=== PATIENT | female | born 1940 | race Caucasian/White ===

== ENCOUNTER 2019-04-09 18:34 | Emergency (ER) | payer OTHER ==
[~2019-04-09] VITALS: Ht 154.9 cm; Wt 73.5 kg
--- OUTSIDE RECORDS SUMMARY | 2019-04-09 18:36 | XMS REPORT ---
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 Allergies, Adverse Reactions, Alerts This patient has no known allergies or adverse reactions. Medications This patient has no known medications. Results Test Description Test Time Test Comments Text Results Atomic Results Result Comments SCR MAMM BILATERAL ANDREW CAD DIGITAL 2018-11-20 09:59:03 - SCR MAMM BILATERAL ANDREW CAD DIGITALBILATERAL DIGITAL SCREENING MAMMOGRAM 3D/2D WITH CAD: 11/20/2018CLINICAL: Asymptomatic. Current mammographic images were evaluated by either a [employer] M-Vu or an [employer] version 7.2 computer aided detection system. Comparison is made to exams dated 05/07/2017 mammogram, 04/10/2016 mammogram, and 03/24/2015 mammogram - [facility]. There are scattered fibr oglandular tissues in both breasts. No suspicious mass, architectural distortion, malignant type calcification, or lymph node abnormality detected. Breast architecture is stable compared to prior exams.IMPRESSION: NEGATIVEThere is no mammographic evidence of malignancy. Resume annual screening mammography in one year. Woo Diaz M.D. ss/penrad:11/20/2018 09:59:03 Geology Faculty Member: Anitha Ritchie , [facility] sent: BIRADS 1-2 Normal Mammogram BI-RADS: 1 Negative
--- NOTE | 2019-04-09 19:44 | Diagnostic Imaging Report ---
EXAMINATION: Head CT without contrast. HISTORY:Status post fall. COMPARISON:None. TECHNIQUE: Multidetector axial images were obtained from the foramen magnum to the vertex without contrast. The images were reconstructed using brain and bone algorithms. Thin section brain images were reformatted into coronal and sagittal planes. Dose modulation, iterative reconstruction, and/or weight based adjustment of the mA/kV was utilized to reduce the radiation dose to as low as reasonably achievable. Intravenous contrast: None IMAGE QUALITY: Acceptable. FINDINGS: Skull/scalp: No lytic or blastic. lesions. No surgical changes. Parenchyma: Nonspecific bilateral frontoparietal patchy and confluent white matter hypodensity are likely related to small vessel ischemic changes. No acute hemorrhage, mass or acute major vascular territorial infarct. Arteries: No density suggestive of thrombosis. Atherosclerotic calcification in bilateral carotid siphon and V4 segment of right vertebral artery. Dural sinuses: No abnormal density suggestive of thrombosis. Ventricles: No hydrocephalus or displacement. Extra-axial spaces: No abnormal density. Brain volume: Normal for age. Craniocervical junction: No mass, Chiari malformation, or basilar invagination. Sella: No mass. Paranasal/mastoid sinuses: Moderate mucosal thickening without fluid level in left sphenoid sinus. Mild mucosal thickening with sclerotic and thickened sinus wall and left maxillary sinus represents chronic inflammation. Incidental finding: Hyperdense appearance of right globe probably represents prosthesis. IMPRESSION: 1. No acute posttraumatic intracranial abnormality. 2. Moderate supratentorial white matter microvascular ischemic changes. Signed by: Dr. Shelby Small M.D. on 04/09/2019 7:41 PM
--- NOTE | 2019-04-09 19:51 | Diagnostic Imaging Report ---
History: Status post fall. Comparison studies: None Technique: Axial images were obtained through the cervical region.. Coronal and sagittal images reconstructed from the axial data. Dose modulation, iterative reconstruction, and/or weight based adjustment of the mA/kV was utilized to reduce the radiation dose to as low as reasonably achievable. Intravenous contrast: None Findings: Fractures: None. Soft tissue injuries: None. Atlantoaxial articulation: Intact. Alignment: Loss of normal cervical lordosis is either positional or due to muscle spasm. No scoliosis. 2 mm grade 1 anterolisthesis at C5-C6. Cervicomedullary junction: No abnormalities. The foramen magnum is patent. Soft tissues: Atherosclerotic calcification in bilateral carotid bulb. Vertebrae: No fractures, infection or neoplasm. Degenerative changes: C2-C3: Mild right foraminal stenosis due to facet and uncovertebral arthrosis. C3-C4: Moderate right facet arthrosis without significant foraminal stenosis. C4-C5: Mild left foraminal stenosis due to facet and uncovertebral arthrosis. C5-C6: Moderate degenerative disc disease. Moderate left foraminal stenosis due to facet and uncovertebral arthrosis. C6-C7: Moderate degenerative disc disease. Mild left foraminal stenosis due to facet and uncovertebral arthrosis. Incidental finding: Linear, calcified airspace opacity in left lung apex may represent scar. IMPRESSION: 1. No acute cervical spine fracture or dislocation. Loss of normal cervical lordosis is either positional or due to muscle spasm. 2. Ligament, spinal cord and or vascular abnormalities cannot be excluded on the basis of this examination. 3. Cervical spondylosis as detailed above. Signed by: Dr. Shelby Small M.D. on 04/09/2019 7:48 PM
--- NOTE | 2019-04-09 19:54 | NUR ---
report given to joanne darden
[2019-04-09 21:13] VITALS: BP 144/69
== END 2019-04-09 21:30 | disposition home or self-care (01) ==
LOC: ER 18:34
DX: S00.83XA Contusion of other part of head, initial encounter (principal); S16.1XXA Strain of muscle, fascia and tendon at neck level, initial encounter; W01.0XXA Fall on same level from slipping, tripping and stumbling without subsequent striking against object, initial encounter; Y92.008 Other place in unspecified non-institutional (private) residence as the place of occurrence of the external cause; I10 Essential (primary) hypertension; K21.9 Gastro-esophageal reflux disease without esophagitis; F32.9 Major depressive disorder, single episode, unspecified; Z85.118 Personal history of other malignant neoplasm of bronchus and lung
CPT/HCPCS: 70450; 72125; 93005; 99283

== ENCOUNTER 2019-04-28 11:55 | Emergency (ER) | payer OTHER ==
[~2019-04-28] VITALS: Ht 154.9 cm; Wt 73.5 kg
[2019-04-28] MEDS ORDERED: FAMOTIDINE 20 MG TAB PO ONE (13:15)
[2019-04-28 14:14] LABS: BILIRUBIN,URINE MODERATE (NEGATIVE); CLARITY,URINE SL CLOUDY (CLEAR); COLOR,URINE YELLOW (YELLOW); KETONES,URINE TRACE (NEGATIVE); LEUKOCYTE ESTERASE ,URINE SMALL (NEGATIVE); NITRITE,URINE NEGATIVE (NEGATIVE); PROTEIN,URINE DIPSTICK TRACE (NEGATIVE); URINE UROBILINOGEN 0.2 mg/dL (0.2 - 1)
[2019-04-28 14:33] LABS: BACTERIA,URINE FEW /HPF; EPITHELIAL CELLS,URINE MODERATE /LPF; RENAL EPITHELIAL CELLS,URINE RARE; TRANSITIONAL EPI CELLS,URINE RARE
[2019-04-28 14:34] LABS: AMORPHOUS SEDIMENT,URINE FEW (FEW)
== END 2019-04-28 14:53 | disposition home or self-care (01) ==
LOC: ER 11:55
DX: B02.9 Zoster without complications (principal); N30.91 Cystitis, unspecified with hematuria; I10 Essential (primary) hypertension; E78.5 Hyperlipidemia, unspecified; K21.9 Gastro-esophageal reflux disease without esophagitis
CPT/HCPCS: 81001; 99283